=== PATIENT | female | born 1945 | race Two or more races ===

== ENCOUNTER 2022-07-02 08:15 | Inpatient (IN) | payer OTHER ==
[~2022-07-02] VITALS: Ht 152.4 cm; Wt 65.8 kg
[2022-07-02] MEDS ORDERED: TOPROL XL50 M1 PO (09:24)
[2022-07-02] MEDS ORDERED: COZAAR100 MG PO (09:24)
[2022-07-02] MEDS ORDERED: ULTRAM50 MG PO (09:24)
[2022-07-02] MEDS ORDERED: GABAPENTIN800 MG (09:24)
[2022-07-02] MEDS ORDERED: ZANAFLEX4 M1 PO (09:25)
[2022-07-11] MEDS ORDERED: PERCOCET 5-3251 EACH PO (16:47)
[2022-07-11] MEDS ORDERED: ELIQUIS2.5 MG PO (16:47)
[2022-07-11] MEDS ORDERED: DUI500 PO (16:47)
== END 2022-07-11 22:47 | disposition home or self-care (01) | DRG 470 ==
LOC: O/R 07-09 05:25 → SURG 07-09 05:25 → SURH 07-09 08:15 → SURG 07-09 13:20
PROVIDERS: ADMIT Orthopaedic Surgery; ATTEND Orthopaedic Surgery
PROC: 0SRC0J9 Replacement of Right Knee Joint with Synthetic Substitute, Cemented, Open Approach (ICD-10-PCS; principal; 2022-07-09 11:15)
DX: M17.11 Unilateral primary osteoarthritis, right knee (principal); D62 Acute posthemorrhagic anemia; M22.11 Recurrent subluxation of patella, right knee; I10 Essential (primary) hypertension; Z96.651 Presence of right artificial knee joint; Z20.822 Contact with and (suspected) exposure to COVID-19

== ENCOUNTER 2024-02-03 08:15 | Inpatient (IN) | payer OTHER ==
[~2024-02-03] VITALS: Ht 149.9 cm; Wt 59.0 kg
[~2024-02-03 08:15] MED LIST: COZAAR100 MG PO; DUI500 PO; ELIQUIS2.5 MG PO; GABAPENTIN800 MG; PERCOCET 5-3251 EACH PO; TOPROL XL50 M1 PO; ULTRAM50 MG PO; ZANAFLEX4 M1 PO
[2024-02-03 10:16] LABS: URINE BILIRRUBIN Negative (NEGATIVE); URINE BLOOD Negative; URINE COLOR Yellow; URINE GLUCOSE Negative (NEGATIVE); URINE LEUKOCYTE Negative; URINE NITRATE Negative; URINE PROTEIN Negative (NEGATIVE); URINE UROBILINOGEN 0.2 E.U./dl
[2024-02-03 10:20] LABS: URINE EPITHELIAL CELLS 1.5 uL (0.0-38.8); URINE RBC 2.2 uL (0.0-20.8)
[2024-02-03 10:22] LABS: URINE BACTERIA 1.2 uL (0.0-1933); URINE WBC 1.2 uL (0.0-23.2)
[2024-02-03 10:29] LABS: HEMATOCRIT 40.8 % (36.0-45.00); HEMOGLOBIN 14.2 g/dL (12.0-15.00); MEAN CELL VOLUME 95.6 fL (80.00-100.00); MEAN CORPUSCULAR HEMOGLOBIN 33.4 pg (27.00-32.0); MEAN CORPUSCULAR HGB CONC 34.9 g/dl (32.0-36.0); PLATELET COUNT 230 K/uL (150-450); RED BLOOD COUNT 4.26 M/uL (4.00-6.00); RED CELL DISTRIBUTION WIDTH 12.7 % (11.5-14.5)
[2024-02-03 10:51] LABS: INR 1.02; PARTIAL THROMBOPLASTIN TIME 29.3 SECONDS (22.0-34.0); PROTHROMBIN TIME 10.7 SECONDS (9.0-11.5)
[2024-02-03 10:55] LABS: ALBUMIN 4.2 gm/dL (3.4-5.0); BILIRUBIN TOTAL 0.72 mg/dL (0.3-1.2); CALCIUM 10.8 mg/dL (8.5-10.1); CREATININE SERUM 0.71 mg/dL (0.55-1.02); GFR 79.82; GLOBULINA 3.7 G/DL (2.4-3.5); POTASSIUM 4.5 mEq/L (3.5-5.1); TOTAL PROTEIN 7.9 gm/dL (6.4-8.2)
[2024-02-03 12:41] LABS: URINE APPEARANCE CLEAR
[2024-02-10] MEDS ORDERED: ONDANSETRON HCL 2 MG/ML VIAL IV PRN (09:00)
[2024-02-10] MEDS ORDERED: MORPHINE SULFATE 4 MG/ML CARTRIDGE IV PRN (09:00)
[2024-02-10] MEDS ORDERED: GABAPENTIN 300 MG CAPSULE PO SCH (09:00)
[2024-02-10] MEDS ORDERED: SODIUM CHLORIDE 0.45 % 1,000 ML IV SCH (09:00)
[2024-02-10] MEDS ORDERED: CEFAZOLIN SODIUM 1,000 MG VIAL IV SCH ×2 (09:00→09:45)
[2024-02-10] MEDS ORDERED: OxyCODONE HCL 5 MG TABLET (ROXICODONE) PO PRN (09:00)
[2024-02-10] MEDS ORDERED: POVIDONE-IODINE 3 EA MED..SWAB TOP ONE (09:30)
[2024-02-10] MEDS ORDERED: LIDOCAINE HCL 1%/EPINEPHRINE 20ML VIAL IJ ONE (09:30)
[2024-02-10] MEDS ORDERED: BUPIVACAINE HCL 30 ML VIAL IJ ONE (09:30)
[2024-02-10] MEDS ORDERED: KETOROLAC TROMETHAMINE 60 MG VIAL IM ONE (09:45)
[2024-02-10] MEDS ORDERED: MORPHINE SULFATE 4 MG/ML VIAL IV ONE (09:45)
[2024-02-10] MEDS ORDERED: ISOPROPYL ALCOHOL 30 ML OUNCE TOP ONE (09:45)
[2024-02-10] MEDS ORDERED: ALENDRONATE SOD70 MG (10:42)
[2024-02-10] MEDS ORDERED: DONEPEZIL HCL5 MG (10:42)
[2024-02-10] MEDS ORDERED: HYDROCHLOROTH12.5 M2 (10:42)
[2024-02-10] MEDS ORDERED: CLOPIDOGREL BIS75 MG (10:42)
[2024-02-10] MEDS ORDERED: LOSARTAN POTASS50 MG (10:42)
[2024-02-10] MEDS ORDERED: OXYBUTYNIN CHLOR5 MG (10:43)
[2024-02-10] MEDS ORDERED: ACETAMINOPHEN 500 MG GEL..CAP PO SCH (12:00)
[2024-02-11 07:02] LABS: HEMATOCRIT 38.6 % (36.0-45.00); HEMOGLOBIN 13.2 g/dL (12.0-15.00); MEAN CELL VOLUME 96.1 fL (80.00-100.00); MEAN CORPUSCULAR HEMOGLOBIN 32.9 pg (27.00-32.0); MEAN CORPUSCULAR HGB CONC 34.3 g/dl (32.0-36.0); PLATELET COUNT 200 K/uL (150-450); RED BLOOD COUNT 4.02 M/uL (4.00-6.00); RED CELL DISTRIBUTION WIDTH 12.9 % (11.5-14.5)
[2024-02-11] MEDS ORDERED: ELIQUIS2.5 MG PO (07:44)
[2024-02-11] MEDS ORDERED: PERCOCET 5-3251 EACH PO (07:44)
[2024-02-11] MEDS ORDERED: DUI500 PO (07:44)
[2024-02-11] MEDS ORDERED: METOPROLOL SUCCINATE 50 MG TAB.SR.24H PO SCH (09:00)
[2024-02-11] MEDS ORDERED: SENNOSIDES 1 TAB TABLET PO SCH (09:00)
[2024-02-11] MEDS ORDERED: IRON FUM,PS/FOLIC ACID/VITC/B3 1 CAP CAPSULE PO SCH (09:00)
[2024-02-11] MEDS ORDERED: LOSARTAN POTASSIUM 100 MG TABLET PO SCH (09:00)
[2024-02-11] MEDS ORDERED: APIXABAN 2.5 MG TABLET PO SCH (09:00)
== END 2024-02-11 14:13 | disposition home or self-care (01) | DRG 470 ==
LOC: OB/GYN 02-10 05:00 → O/R 02-10 05:00 → SURH 02-10 08:15 → OB/GYN 02-10 11:14 → SURH 02-10 12:45 → OB/GYN 02-11 14:13
PROVIDERS: ADMIT Orthopaedic Surgery; ATTEND Orthopaedic Surgery
PROC: 0MNP0ZZ Release Left Knee Bursa and Ligament, Open Approach (ICD-10-PCS; 2024-02-10)
PROC: 0QUF0JZ Supplement Left Patella with Synthetic Substitute, Open Approach (ICD-10-PCS; 2024-02-10)
PROC: 0SRD0JZ Replacement of Left Knee Joint with Synthetic Substitute, Open Approach (ICD-10-PCS; principal; 2024-02-10 12:45)
DX: M17.0 Bilateral primary osteoarthritis of knee (principal); D62 Acute posthemorrhagic anemia; Z20.822 Contact with and (suspected) exposure to COVID-19; M22.12 Recurrent subluxation of patella, left knee; M81.0 Age-related osteoporosis without current pathological fracture; E66.9 Obesity, unspecified; Z96.653 Presence of artificial knee joint, bilateral; I10 Essential (primary) hypertension